=== PATIENT | female | born 1980 | race African-American/Black ===

== ENCOUNTER 2021-02-18 17:04 | Emergency (ER) | payer OTHER ==
[2021-02-18 17:19] VITALS: BP 121/70
[2021-02-18] MEDS ORDERED: KETOROLAC 60 MG/2 ML VIAL IM STA (17:33)
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
== END 2021-02-18 18:10 | disposition home or self-care (01) ==
LOC: ED 17:04
DX: R51.9 Headache, unspecified (principal); J32.9 Chronic sinusitis, unspecified
CPT/HCPCS: 96372; 99283; 99284

== ENCOUNTER 2022-08-26 14:39 | Emergency (ER) | payer OTHER ==
[2022-08-26 15:18] LABS: BASOPHILS % (AUTO) 0.5 %; EOSINOPHILS % (AUTO) 0.5 %; HCT - HEMATOCRIT 39.8 % (37.0-47.0); HGB - HEMOGLOBIN 13.1 g/dL (12.0-16.0); LYMPHOCYTES # (AUTO) 2.8 10^3/uL (1.5-3.5); LYMPHOCYTES % (AUTO) 35.7 %; MEAN CORPUSCULAR HEMOGLOBIN 31.2 pg (27.0-31.0); MEAN CORPUSCULAR HGB CONC 32.9 g/dL (32.0-36.0); MEAN CORPUSCULAR VOLUME 94.8 fL (81.0-99.0); MEAN PLATELET VOLUME 10.2 fL (7.9-10.8); MONOCYTES # (AUTO) 0.6 10^3/uL (0.0-1.0); MONOCYTES % (AUTO) 7.8 %; NEUTROPHILS # (AUTO) 4.3 10^3/uL (1.5-6.6); NEUTROPHILS % (AUTO) 55.4 %; PLT - PLATELET COUNT 254 10^3/uL (130-450); RED CELL DISTRIBUTION WIDTH 12.6 % (12.0-15.0); WHITE BLOOD COUNT 7.7 x10^3/uL (4.8-10.8)
[2022-08-26 15:34] LABS: ALBUMIN 3.6 g/dL (3.2-5.5); ALBUMIN/GLOBULIN RATIO 0.9 (1.0-2.2); BILIRUBIN,TOTAL 0.7 mg/dL (0.2-1.0); CREATININE 0.7 mg/dL (0.4-1.0); POTASSIUM 3.9 mmol/L (3.5-5.0); TOTAL PROTEIN 7.5 g/dL (6.7-8.2)
--- NOTE | 2022-08-26 15:37 | XRAY Report ---
PROCEDURE: Chest 1 View X-Ray INDICATIONS: Chest Pain TECHNIQUE: One view of the chest was acquired. COMPARISON: None. FINDINGS: Surgical changes and devices: None. Lungs and pleura: No pleural effusions or pneumothorax. Lungs are clear. Mediastinum: Mediastinal contours appear normal. Heart size is normal. Bones and chest wall: No suspicious bony lesions. Overlying soft tissues appear unremarkable. IMPRESSION: No acute cardiopulmonary process. Reviewed by: Duy Gruber MD on 08/26/2022 3:35 PM PDT Approved by: Duy Gruber MD on 08/26/2022 3:35 PM PDT Station ID: [id number]
--- NOTE | 2022-08-26 16:09 | ED Physician Documentation ---
History of Present Illness - Stated complaint Stated Complaint: CHEST PX - Chief complaint Chief Complaint: Cardiac - Additonal information Additional information: 42-year-old female presents emergency department for evaluation of intermitt ent sharp chest pain for the last several days. Comes and goes. Not exertional. Nonpleuritic. No cough or fevers. Denies any history of similar. Nonradiating. No nausea or vomiting. She does not have any personal history of tobacco use, vaping, hypertension or diabetes. No family history of sudden or early cardiac disease or . Patient is not on anticoagulants. Takes no prescribed medications. No recent surgery or immobilization. Not on any hormones. No recent travel. No unilateral leg swelling. No hip history of DVT or cancer. Review of Systems Constitutional: reports: Reviewed and negative Cardiac: reports: Chest pain / pressure. denies: Palpitations, Pedal edema, Calf pain Respiratory: reports: Reviewed and negative GI: reports: Reviewed and negative : reports: Reviewed and negative PD PAST MEDICAL HISTORY - Present Medications Home Medications: Ambulatory Orders Medication Instructions Recorded Confirmed Cetirizine [ZyrTEC] 10 mg PO DAILY #30 tablet 02/18/21 Fluticasone [Flonase] 1 sprays SUE BID PRN #16 gm 02/18/21 predniSONE [Deltasone] 40 mg PO DAILY 5 Days #10 tablet 02/18/21 - Allergies Allergies/Adverse Reactions: Allergies Allergy/AdvReac Type Severity Reaction Status Date / Time No Known Drug Allergies Allergy Verified 08/26/22 15:01 PD ED PE NORMAL - General General: Alert and oriented X 3, No acute distress - HEENT HEENT: PERRL - Cardiac Cardiac: RRR, No murmur - Respiratory Respiratory: No respiratory distress, Clear bilaterally - Abdomen Abdomen: Normal bowel sounds, Soft, Non tender, Non distended - Back Back: No CVA TTP - Derm Derm: Normal color - Extremities Extremities: No deformity - Neuro Neuro: Alert and oriented X 3, 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 Relevant findings are: Rate: Rate (enter#) (78) Rhythm: NSR Bledsoe: Normal Intervals: Normal VA QRS: Low voltage Ischemia: Normal ST segments Compare to prior EKG: Old EKG unavailable Computer interpretation: Agree with computer - Labs Labs: Laboratory Tests 08/26/22 08/26/22 08/26/22 15:13 15:13 15:13 WBC 7.7 RBC 4.20 Hgb 13.1 Hct 39.8 MCV 94.8 MCH 31.2 H MCHC 32.9 RDW 12.6 Plt Count 254 MPV 10.2 Neut # (Auto) 4.3 Lymph # (Auto) 2.8 [place] # (Auto) 0.6 Eos # (Auto) 0.0 Baso # (Auto) 0.0 Absolute Nucleated RBC 0.00 Nucleated RBC % 0.0 Sodium 139 Potassium 3.9 Chloride 106 Carbon Dioxide 25 Anion Gap 8.0 BUN 12 Creatinine 0.7 Estimated GFR (MDRD) 110 Glucose 81 Calcium 9.0 Total Bilirubin 0.7 AST 15 ALT 17 Alkaline Phosphatase 67 Troponin I High Sens < 2.3 L Total Protein 7.5 Albumin 3.6 Globulin 3.9 Albumin/Globulin Ratio 0.9 L Lipase 40 - Rads (name of study) cxr Relevant Findings:: Final report received (No acute cardiopulmonary process) PD Medical Decision Making - ED course Complexity details: reviewed results, re-evaluated patient, considered differential, d/w patient ED course: 42-year-old female presents emergency department for evaluation of sharp intermittent chest pain for the last 4 days. No history of similar. Chest x-ray shows no findings of pneumothorax or pneumonia. No pleural effusion. No cardiomegaly. EKG entirely unremarkable. No ischemic changes. I did obtain a CBC, electrolytes as well as a high-sensitivity troponin. All are negative and unremarkable. By PERC criteria as well as Wells criteria low risk for DVT. Did not obtain advanced imaging or D-dimer. I suspect the etiology may be a silent acid reflux. I have made the recommendation for her to use a daily PPI, avoid caffeinated spicy foods as well as eating before bedtime. Other etiologies could include a pleurisy though she has not recently had any head pain. However given atypical presentation did make the recommendation to follow closely with the PCP for referral for echo, stress test or Holter monitor Departure - Departure Disposition: Home, Self Care Clinical Impression: Chest pain Qualifiers: Chest pain type: unspecified Qualified Code(s): R07.9 - Chest pain, unspecified Condition: Stable Record reviewed to determine appropriate education?: Yes Instructions: ED Chest Pain Atypical Unkn Cause Comments: You came to the emergency department today because for the last several days you have had some sharp intermittent chest pain. As we discussed at the bedside your chest x-ray, labs and EKG are essentially normal. We did discuss some other atypical causes of chest pain that could include pleurisy or inflammation of the lining of the your lungs. It could also be gastritis. I do recommend that you continue to take your daily acid reflux medication. Avoid caffeinated foods and spicy foods. Do not eat or drink 2 to 3 hours before bedtime and sleep upright on several pillows. If it simple gastritis I would expect the symptoms to be getting better over the next several days. In any event your chest pain should be evaluated with a stress test or echocardiogram to rule out cardiac causes though as we discussed at the bedside my suspicion for cardiac etiology at this time is rather low. Return to the emergency department with sudden severe shortness of air, any fainting episodes or worsening symptoms
[2022-08-26 16:15] VITALS: BP 119/80
== END 2022-08-26 16:37 | disposition home or self-care (01) ==
LOC: ED 14:39
DX: R07.9 Chest pain, unspecified (principal)
CPT/HCPCS: 36415; 80053; 83690; 84484; 85025; 93005; 99283; 99284